=== PATIENT | male | born 1985 | race Caucasian/White ===

== ENCOUNTER 2020-09-12 13:43 | Emergency (ER) | payer OTHER, SELFPAY ==
[2020-09-12] VITALS (18 sets, daily range): BP systolic 124–150; BP diastolic 70–93; PULSE 51–74; RESP 14–35; O2SAT 94–100; BMI 30.9
--- NOTE | 2020-09-12 13:49 | DI.RAD.S_ITS ---
PROCEDURE: XR SHOULDER RT MIN 2V INDICATIONS: pain fall dislcoation TECHNIQUE: 2 views of the shoulder were acquired. COMPARISON: None. FINDINGS: Bones: Anterior inferior shoulder dislocation. There is a osseous density adjacent to the inferior glenoid suspicious for Bankart lesion. No suspicious bony lesions. Visualized ribs appear intact. Soft tissues: No suspicious soft tissue calcifications. IMPRESSION: Anterior inferior shoulder dislocation. Dictated by: Venkatesh Fletcher M.D. on 09/12/2020 at 13:17 Approved by: Venkatesh Fletcher M.D. on 09/12/2020 at 13:18
[2020-09-12] MEDS: KETOROLAC 30 MG/ML VIAL 15 MG IV (14:12)
[2020-09-12] MEDS: HYDROMORPHONE 1 MG INJ IV (14:12)
--- NOTE | 2020-09-12 14:27 | PC.NURSE ---
Intermittent numbness in right hand. Radial pulse strong. Positioned for comfort/medicated for pain.
--- NOTE | 2020-09-12 14:37 | ED_ITS ---
HPI - Fall General Chief Complaint: Fall Stated Complaint: Shoulder dislocation Time Seen by Provider: 09/12/20 13:47 Source: patient and EMS Mode of arrival: EMS History of Present Illness HPI Narrative: Patient is a 35-year-old male who presents with right shoulder pain. He says he was on of yet when he fell into the hole hurting his shoulder. He required airlift to bring him here to the ED for evaluation. However he was evaluated at a clinic and EMS. He was given ketamine Dilaudid fentanyl all for pain. He is having some numbness and tingling in his fingertips but he says it has improved but not gone. Airlift attempted reduction in route but was unsuccessful. No other injury. Related Data Previous Rx's Medication Instructions Recorded hydrocodone 5 mg-acetaminophen 325 1 tab PO Q6H PRN #10 tab 09/12/20 mg tablet Allergies Allergy/AdvReac Type Severity Reaction Status Date / Time No Known Drug Allergies Allergy Verified 09/12/20 13:45 Review of Systems Review of Systems Narrative: GENERAL: Denies chills,fever HEENT: Denies throat pain RESPIRATORY: Denies dyspnea, cough, wheezing CARDIOVASCULAR: Denies chest pain, palpitations GASTROINTESTINAL: Denies nausea, vomiting MUSCULOSKELETAL: See HPI SKIN: No rash, no laceration, no pruritus NEUROLOGIC: Denies weakness, dizziness, headache, numbness 8 point review of systems is negative except for those stated above and HPI Patient History Social History Smoking Status: Unknown if ever smoked Smoking Status: Unknown if ever smoked alcohol intake frequency: 0-2 drinks per day Substance Use Type: does not use Exam Initial Vital Signs Initial Vital Signs: Vital Signs Pulse Rate 51 L 09/12/20 13:45 Respiratory Rate 14 09/12/20 13:45 Blood Pressure 142/93 H 09/12/20 13:45 Pulse Oximetry 100 09/12/20 13:45 GENERAL: 35-year-old male appears in pain HEENT: Head atraumatic,EOMI, pupils reactive, face symmetric, moist mucous membranes, CARDIOVASCULAR: Regular rate and rhythm without murmurs, rubs or gallops. RESPIRATORY: Breath sounds equal bilaterally, no wheezes rales or rhonchi. EXTREMITIES: Normal range of motion, no clubbing or edema. Neurovascularly intact Right shoulder deformity no clavicle step-offs sensation and deltoid intact distal radial pulse intact able to move fingers without difficulty NEUROLOGICAL: Alert and oriented x4 intact. SKIN: Warm, dry, no laceration, no petechiae, no rashes or lesions. Procedures Orthopedic Joint Reduction Joint #1: Time Out Performed: Yes Side: right Joint Reduction Location: shoulder Technique used: traction/counter-traction and direct manipulation Post-reduction neuro exam: intact Post-reduction vascular: intact Post Reduction X-Ray Obtained: Yes Post Reduction X-Ray Results: reduced Splint Applied: Yes Orthopedic Splinting/Casting Injury #1: Side: right Upper Extremity Injury Location: shoulder Upper Extremity Immobilizer: sling/shoulder immobilizer Post splinting neuro exam: intact Post splinting vascular exam: intact Placed by: Nursing Procedural Sedation Consent signed: Yes Time out performed: Yes Indication: fracture/dislocation reduction ASA Class: II Mallampati Airway Classification: Class II Time of Last PO Intake: 07:00 Preparation: radiographer cardiac catheterization applied, pulse oximeter, capnometry used and supplemental O2 applied Midazolam dose (mg): 4 IV Propofol dose (mg): 200 Intraservice time/total sedation time (min): 15 ED Sedation Level: Moderate (Concious) Patient Tolerated Procedure: Well and No complications Course Orders Ordered: ED Orders 09/12/20 13:49 XR shoulder RT min 2V Stat 09/12/20 17:40 XR shoulder RT min 2V Stat Discontinued Medications Hydromorphone HCl (Hydromorphone 1 Mg Inj) 1 mg IV NOW ONE Stop: 09/12/20 14:00 Last Admin: 09/12/20 14:12 Dose: 1 mg Documented by: ANGEL Ketorolac Tromethamine (Ketorolac 30 Mg/Ml Vial) 15 mg IV NOW ONE Stop: 09/12/20 14:00 Last Admin: 09/12/20 14:12 Dose: 15 mg Documented by: ANGEL Propofol (Propofol 200 Mg/20 Ml Vial) 110 mg 1 mg/kg (110 mg) IV NOW ONE Stop: 09/12/20 17:15 Last Admin: 09/12/20 17:55 Dose: Not Given Documented by: CAROLINE Vital Signs Vital signs: Vital Signs - 8 hr 09/12/20 13:45 09/12/20 16:49 09/12/20 16:58 Pulse Rate 51 L 59 L 55 L Respiratory Rate 14 Blood Pressure 142/93 H 124/70 Pulse Oximetry 100 100 98 09/12/20 17:00 09/12/20 17:11 09/12/20 17:15 Pulse Rate 52 L 66 58 L Respiratory Rate 17 19 17 Blood Pressure 129/78 127/78 Pulse Oximetry 97 98 99 09/12/20 17:20 09/12/20 17:25 09/12/20 17:29 Pulse Rate 60 74 60 Respiratory Rate 23 16 28 H Blood Pressure 130/88 Pulse Oximetry 99 98 09/12/20 17:30 09/12/20 17:35 09/12/20 17:40 Pulse Rate 65 72 58 L Respiratory Rate 35 H 31 H 24 Blood Pressure 133/84 Pulse Oximetry 94 98 09/12/20 17:42 09/12/20 17:45 09/12/20 17:46 Pulse Rate 57 L 60 61 Respiratory Rate 23 23 21 Blood Pressure 150/91 H 146/82 H Pulse Oximetry 98 97 98 09/12/20 17:50 09/12/20 18:00 09/12/20 18:30 Pulse Rate 55 L 60 60 Respiratory Rate 22 18 23 Blood Pressure 147/88 H 142/79 H 136/79 Pulse Oximetry 98 98 99 MDM - Fall Imaging Data Extremity x-ray #1: Radiologist's Impression: PROCEDURE: XR SHOULDER RT MIN 2V INDICATIONS: pain fall dislcoation TECHNIQUE: 2 views of the shoulder were acquired. COMPARISON: None. FINDINGS: Bones: Anterior inferior shoulder dislocation. There is a osseous density adjacent to the inferior glenoid suspicious for Bankart lesion. No suspicious bony lesions. Visualized ribs appear intact. Soft tissues: No suspicious soft tissue calcifications. IMPRESSION: Anterior inferior shoulder dislocation. Dictated by: Venkatesh Fletcher M.D. on 09/12/2020 at 13:17 Extremity x-ray #2: Radiologist's Impression: PROCEDURE: XR SHOULDER RT MIN 2V INDICATIONS: post reduction TECHNIQUE: 2 views of the shoulder were acquired. COMPARISON: [facility], XR SHOULDER RT MIN 2V, 09/12/2020, 13:46. FINDINGS: Bones: Shoulder dislocation is reduced. The glenohumeral joint is anatomically aligned. There is a Hill-Sachs deformity and a fracture fragment adjacent to the humeral head. No suspicious bony lesions. Visualized ribs appear intact. Soft tissues: No suspicious soft tissue calcifications. IMPRESSION: 1. Shoulder dislocation is reduced. Glenohumeral joint is now anatomically aligned. 2. A Hill-Sachs deformity of the humeral head with a fracture fragment. Labral injury is highly suspected. Dictated by: Venkatesh Fletcher M.D. on 09/12/2020 at 16:53 MDM Narrative Medical decision making narrative: Patient is reduced but does require quite a bit of propofol and Versed. Does show a Hill-Sachs deformity. Patient is placed in sling. He is given a disc with imaging on. He is returning home to [place] tomorrow. He is given prescription for pain control as well. I have spoken to his and updated her as Discharge Plan Departure Patient Disposition: Home Clinical Impression: Anterior dislocation of right shoulder Qualifiers: Encounter type: initial encounter Qualified Code(s): S43.014A - Anterior dislocation of right humerus, initial encounter Instructions: DI for Shoulder Dislocation Activity Restrictions/Additional Instructions: *You have been diagnosed with right shoulder dislocation *What to do: Noted which is very common with this dislocation. It is possible you have a tear as well. Keep arm in sling for a couple of days. Call your primary care provider 1st thing tomorrow to schedule follow-up appointment. You may need to be seen by Orthopedics as well. *Continue to take medications as directed [place] 1 tablet every 6 hours if needed for severe pain *Follow up with your primary care provider in 2-3 days *Return to ER if you should have increasing pain, numbness, tingling or any new, worsening or concerning symptoms CONTROLLED SUBSTANCE DISCHARGE (Narcotoic/benzodiazepine/Flexeril/Phenergan) 1. You have been prescribed narcotic medications, it does have acetaminophen/Tylenol/paracetamol in it, DO NOT TAKE MORE THAN 4,00mg in 24 hours of Tylenol. TRAMADOL DOES NOT CONTAIN TYLENOL 2. Please understand that we cannot provide further refills of narcotics, benzodiazepines or controlled substances through the ED and her pain management will need to be through your provider. 3. While on these medications you cannot drive or operate heavy machinery. 4. You cannot sign legal documents or perform any duties such as this. 5. As long as you're taking opiate pain medications he should also be taking a stool softener such as Colace, Dulcolax, MiraLAX or prune juice, to help avoid constipation. Prescriptions: New hydrocodone-acetaminophen 5-325 mg tablet 1 tab PO Q6H PRN (Reason: pain) Qty: 10 RF: 0
[2020-09-12] MEDS: propofoL 200 MG/20 ML VIAL IV (17:21)
[2020-09-12] MEDS: MIDAZOLAM 2 MG/2 ML VIAL ×2 (17:28)
--- NOTE | 2020-09-12 17:34 | PC.NURSE ---
1728: Admin another 100mg propofol by Dr Gilbert, and 4mg Versed 1730: R shoulder reduced at this time. pt tolerated well 1735: XR in room for post reduction scan
--- NOTE | 2020-09-12 17:40 | DI.RAD.S_ITS ---
PROCEDURE: XR SHOULDER RT MIN 2V INDICATIONS: post reduction TECHNIQUE: 2 views of the shoulder were acquired. COMPARISON: , CR, XR SHOULDER RT MIN 2V, 09/12/2020, 13:46. FINDINGS: Bones: Shoulder dislocation is reduced. The glenohumeral joint is anatomically aligned. There is a Hill-Sachs deformity and a fracture fragment adjacent to the humeral head. No suspicious bony lesions. Visualized ribs appear intact. Soft tissues: No suspicious soft tissue calcifications. IMPRESSION: 1. Shoulder dislocation is reduced. Glenohumeral joint is now anatomically aligned. 2. A Hill-Sachs deformity of the humeral head with a fracture fragment. Labral injury is highly suspected. Dictated by: Venkatesh Fletcher M.D. on 09/12/2020 at 16:53 Approved by: Venkatesh Fletcher M.D. on 09/12/2020 at 16:56
== END 2020-09-12 19:04 | disposition home or self-care (01) ==
PROVIDERS: Emergency Provider Emergency Medicine
DX: S43.014A Anterior dislocation of right humerus, initial encounter (principal); W19.XXXA Unspecified fall, initial encounter
CPT/HCPCS: 23650; 73030; 96374; 96375; 99152; 99284; 99285; J1170; J1885; J2250; J2704